=== PATIENT | female | born 1970 | race Caucasian/White ===

== ENCOUNTER → 2017-11-20 | Outpatient (CLI) | payer BC, OTHER ==
[~2017-11-20] MED LIST: FLEXERIL PO; HYDROCODONE-AP1 EAC6 PO; IBUPROFEN 200200 M1 PO; IBUPROFEN 400400 M2 PO; LEVOTHYROXIN0.112 M1 PO; LEVOTHYROXIN0.125 M1 PO; LINZESS145 MCG PO; OMEPRAZOLE40 MG PO; ZOFRAN ODT4 MG SUBLING
== END ==
LOC: RAD 11:25
DX: R63.4 Abnormal weight loss (principal)